=== PATIENT | male | born 2000 | race Caucasian/White ===

== ENCOUNTER → 2019-12-12 | Outpatient (CLI) | payer BC ==
--- NOTE | 2019-12-12 15:31 | Diagnostic Imaging Report ---
PROCEDURE: US Scrotum. TECHNIQUE: Multiple real-time grayscale images were obtained over the scrotum in various projections bilaterally. INDICATION: Testicular pain that radiates to the right inguinal canal. Right testicle measures 4.2 x 2.7 x 1.9 cm, the left testicle measures 4.1 x 2.4 x 1.8 cm. Both testes show homogeneous echotexture. No discrete testicular mass is detected. There is blood flow to both testes. Epidermides are unremarkable. No hydrocele or varicocele is seen. There is some heterogeneity noted in the right inguinal canal which does show some movement during Valsalva maneuvers. This may represent a right inguinal hernia. IMPRESSION: 1. Unremarkable scrotal ultrasound. No testicular mass or vascular compromise is identified. 2. Findings suggestive of right inguinal hernia. Dictated by: Dictated on workstation # [id number]
== END ==
LOC: RAD 13:55
PROVIDERS: ATTEND Nurse Practitioner Family
DX: N50.819 Testicular pain, unspecified (principal)
CPT/HCPCS: 76870

== ENCOUNTER 2020-02-23 09:20 | Outpatient (RCR) | payer BC ==
[~2020-02-23] VITALS: Ht 160 cm; Wt 73.6 kg
== END 2020-02-23 14:50 | disposition home or self-care (01) ==
LOC: PREOP 09:20
PROVIDERS: ATTEND Surgery
DX: Z01.818 Encounter for other preprocedural examination (principal); Z11.59 Encounter for screening for other viral diseases; K40.31 Unilateral inguinal hernia, with obstruction, without gangrene, recurrent
CPT/HCPCS: 87635

== ENCOUNTER 2020-02-29 09:00 | Day surgery (SDC) | payer BC ==
[2020-02-29] VITALS (11 sets, daily range): BP systolic 95–137; BP diastolic 63–83
[~2020-02-29] VITALS: Ht 162.6 cm; Wt 73.6 kg
--- NOTE | 2020-02-29 09:07 | Progress Note-Pre Operative ---
Pre-Operative Progress Note H&P Reviewed The H&P was reviewed, patient examined and no changes noted. Date Seen by Provider: February 29, 2020 Time Seen by Provider: 09:05 Date H&P Reviewed: February 29, 2020 Time H&P Reviewed: 09:00 Pre-Operative Diagnosis: Right inguinal hernia SOLE STEWART APRN February 29, 2020 09:07
[2020-02-29] MEDS ORDERED: HYDR-4227 PO (09:09)
--- NOTE | 2020-02-29 09:09 | Discharge Inst-Surgical ---
D/C Lap Instructions-KIDO Reconcile Patient Problems Problems Reviewed?: Yes New, Converted, or Re-Newed RX: RX on Chart Follow Up Appt in 2 weeks Activity as tolerated No driving for 24 hours No driving while on pain medications Incentive Spirometry use every 2 hours while awake Regular Diet Symptoms to Report: Fever over 101 degree F, Nausea/Vomiting Infection Signs and Symptoms to report: Increased redness, Foul odor of wound, Increased drainage Bathing instructions: May shower Operative Area Clean/Dry; Keep incision clean/dry If any problems/questions: Contact your physician or go to Emergency Room SOLE STEWART APRN February 29, 2020 09:09
--- OUTSIDE RECORDS SUMMARY | 2020-02-29 09:13 | XMS REPORT | Continuity of Care Document ---
Demographics Preferred Language Unknown Marital Status Unknown Roman Catholic Affiliation Unknown Race Unknown Ethnic Group Unknown Author Organization Unknown Address Unknown Phone Unavailable Allergies Active Description Code Type Severity Reaction Onset Reported/Identified Relationship to Patient Clinical Status Yes NKDA NKDA N/A N/A Yes No Known Drug Allergies [id number] Drug Allergy Unknown N/A 02/22/2020 Medications Medication Packaging Start Date St op Date Route Dosage Sig doxycycline monohydrate caps ule 12/08/2018 Take 1 capsule by mouth twice a day Problems Date Dx Coded Attending Type Code Diagnosis Diagnosed By 09/02/1449 SRINIVAS FUENTES MD, Ot K40.31 UNILATERAL INGUINAL HERNIA, W OBST, W/O 09/02/1449 SRINIVAS FUENTES MD Ot Z01.81 8 ENCOUNTER FOR OTHER PREPROCEDURAL EXAMIN 09/02/1449 SRINIVAS FUENTES MD, Ot Z11.59 ENCOUNTER FOR SCREENING FOR OTHER VIRAL 12/09/2018 MD Varsha, Kristopher ICD10 R30.0 Dysuria Kristopher, 12/05/2019 W N50.811 Te sticular pain, right Blaire Puri 12/05/2019 W 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.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 Blaire Puri 12/08/2019 W N50.811 Te sticular pain, right Blaire Puri 12/08/2019 W R46.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 Blaire Puri 12/15/2019 BLAIRE PURI WINDOW TRIMMER Ot N50.819 TESTICULAR PAIN, UNSPECIFIED 12/25/2019 BLAIRE PURI WINDOW TRIMMER Ot N50.811 RIGHT TESTICULAR PAIN 01/08/2020 BLAIRE PURI WINDOW TRIMMER Ot N50.811 RIGHT TESTICULAR PAIN Procedures Code Description [place] [address] UA D ipstick only Kristopher, 12/08/2018 25407 NEW LEVEL 3 Kristopher, 12/08/2018 Results Test Result Range Urine Culture, Routine - 12/08/18 11:57 Urine Culture, Routine Note Coronavirus SARS-CoV-2 SO 2019 - 0 13:20 Coronavirus Ab [Units/volume] in Serum Negative Negative Encounters ACCT No. Visit Date/Time Discharge Status Pt. Type Provider Facility Loc./Unit Complaint [id number] 12/10/2018 19:06:00 Document Registration [id number] 04/03/2019 16:00:00 04/03/2019 23:59:5 9 CLS Outpatient ITZEL RANDALL [facility] [id number] 12/08/2018 00:00:00 12/08/2018 23:59: 59 CLS Outpatient MD Maddox John [id number] 02/23/2020 09:20:00 14:50:00 DIS Outpatient SRINIVAS FUENTES MD [facility] PREOP RIGHT INGUINAL HERNIA [id number] 12/12/2019 13:55:00 23:59:59 CLS Outpatient BLAIRE PURI [facility] RAD TESTICULAR PAIN [id number] 02/29/2020 10:00:00 P EN Preadmit SRINIVAS FUENTES MD [facility] RIGHT INGUINAL HERNIA [id number] 11/20/2019 12:41:49 11/20/2019 23:59:5 9 CLS Outpatient
[2020-02-29] MEDS ORDERED: HYDROcodone/APAP 5 MG/325 MG (LORTAB) TAB PO ONE (09:15)
[2020-02-29] MEDS ORDERED: morphine INJ 10 MG/ML 1ML (SYR OR VIAL) IVP PRN (09:15)
[2020-02-29] MEDS ORDERED: ONDANSETRON 4 MG/2 ML (SDV) Z0FRAN IVP PRN (09:15)
[2020-02-29] MEDS ORDERED: ACETAMINOPHEN 325 MG TABLET PO PRN (09:15)
[2020-02-29] MEDS ORDERED: MIDAZOLAM 2 MG/2 ML (VERSED) VIAL ONE ×2 (09:26→10:11)
[2020-02-29] MEDS ORDERED: BUP/EPI 0.5% 1:200,000 (SENSORCAINE) 30 ML VIAL ONE (09:26)
[2020-02-29] MEDS ORDERED: MULT-974 PO (09:28)
[2020-02-29] MEDS: LACTATED RINGERS 1,000 ML IV PRN ×3 (09:29→12:01)
[2020-02-29] MEDS ORDERED: MIDAZOLAM 2 MG/2 ML (VERSED) VIAL IVP ONE (09:30)
[2020-02-29] MEDS ORDERED: ceFAZolin 2 GM IV Premixed 50 ML IV ONE (09:30)
[2020-02-29] MEDS ORDERED: ONDANSETRON 4 MG/2 ML (SDV) Z0FRAN IVP ONE (09:30)
[2020-02-29 09:36] LABS: BASOPHILS % (AUTO) 0 % (0-10); EOSINOPHILS # (AUTO) 0.2 10^3/uL (0.0-0.3); EOSINOPHILS % (AUTO) 2 % (0-10); HEMATOCRIT 45 % (40-54); HEMOGLOBIN 15.9 G/DL (13.3-17.7); LYMPHOCYTES # (AUTO) 3.7 X 10^3 (1.0-4.0); LYMPHOCYTES % (AUTO) 47 % (12-44); MEAN CORPUSCULAR HEMOGLOBIN 31 PG (25-34); MEAN CORPUSCULAR HGB CONC 36 G/DL (32-36); MEAN CORPUSCULAR VOLUME 87 FL (80-99); MEAN PLATELET VOLUME 12.2 FL (7.4-10.4); MONOCYTES # (AUTO) 0.8 X 10^3 (0.0-1.0); MONOCYTES % (AUTO) 10 % (0-12); NEUTROPHILS # (AUTO) 3.1 X 10^3 (1.8-7.8); NEUTROPHILS % (AUTO) 40 % (42-75); PLATELET COUNT 170 10^3/uL (130-400); RED CELL DISTRIBUTION WIDTH 13.7 % (10.0-14.5); WHITE BLOOD COUNT 7.7 10^3/uL (4.3-11.0)
[2020-02-29] MEDS ORDERED: ONDANSETRON 4 MG/2 ML (SDV) Z0FRAN IV ONE (09:45)
[2020-02-29] MEDS ORDERED: MIDAZOLAM 2 MG/2 ML (VERSED) VIAL IV ONE (09:45)
[2020-02-29] MEDS ORDERED: fentaNYL INJECTION 100 MCG/2 ML AMP ONE (10:11)
[2020-02-29] MEDS ORDERED: SEVOFLURANE (ULTANE) 15 ML INHAL SOLN ONE ×4 (11:27→11:38)
[2020-02-29] MEDS ORDERED: ONDANSETRON 4 MG/2 ML (SDV) Z0FRAN ONE (11:27)
[2020-02-29] MEDS ORDERED: proPOfol 200 MG/20 ML (DIPRIVAN) VIAL IV ONE (11:27)
[2020-02-29] MEDS ORDERED: LIDOCAINE PF 2% 5 ML (XYLOCAINE) VIAL ONE (11:27)
[2020-02-29] MEDS ORDERED: ROCURONIUM 10 MG/ML 5 ML SYRINGE IV ONE (11:27)
[2020-02-29] MEDS ORDERED: DEXAMETHASONE 10 MG/ML (DECADRON) 1 ML VIAL ONE (11:27)
[2020-02-29] MEDS ORDERED: SUGAMMADEX 500 MG/5 ML VIAL (BRIDION) IV ONE (11:36)
[2020-02-29] MEDS ORDERED: KETOROLAC 30 MG/ML VIAL ONE (11:40)
[2020-02-29] MEDS ORDERED: HYDROmorphone 2 MG/ML VIAL (DILAUDID) ONE (11:54)
[2020-02-29] MEDS ORDERED: PROMETHAZINE INJ 25 MG/ML (PHENERGAN) AMP IVP ONE (12:00)
[2020-02-29] MEDS ORDERED: HYDROmorphone 2 MG/ML VIAL (DILAUDID) IV ONE (12:00)
[2020-02-29] MEDS: ONDANSETRON 4 MG/2 ML (SDV) Z0FRAN IVP PRN ×3 (12:01→12:34)
--- NOTE | 2020-02-29 12:14 | Progress Note-Post Operative ---
Post-Operative Progess Note Surgeon (s)/Snailer (s) Surgeon SRINIVAS FUENTES MD Snailer: yumi thayer METAL HANGER Pre-Operative Diagnosis Right inguinal hernia Post-Operative Diagnosis small right indirect inguinal hernia Procedure & Operative Findings Date of Procedure 02/29/20 Procedure Performed/Findings laparoscopic right inguinal hernia repair with mesh. Anesthesia Type get Estimated Blood Loss Estimated blood loss (mL): minimal Specimens/Packing Specimens Removed none SRINIVAS FUENTES MD February 29, 2020 12:14
[2020-02-29] MEDS ORDERED: HYDROcodone/APAP 5 MG/325 MG (LORTAB) TAB ONE (13:41)
--- NOTE | 2020-02-29 14:50 | Anesthesia-General Post-Op ---
General Patient Condition Mental Status/LOC: Same as Preop Cardiovascular: Satisfactory Nausea/Vomiting: Absent Respiratory: Satisfactory Pain: Controlled Complications: Absent Post Op Complications Complications None Follow Up Care/Instructions Patient Instructions None needed. Anesthesia/Patient Condition Patient Condition Patient is doing well, no complaints, stable vital signs, no apparent adverse anesthesia problems. No complications reported per nursing. D/C home per [facility] Criteria: Yes HILDA ACOSTA CRNA February 29, 2020 14:50
--- NOTE | 2020-02-29 20:32 | OPERATIVE REPORT ---
DATE OF SERVICE: 02/29/2020 ATTENDING PRIMARY CARE PHYSICIAN: Verito Magaña MD PREOPERATIVE DIAGNOSIS: Symptomatic right inguinal hernia. POSTOPERATIVE DIAGNOSIS: Symptomatic right indirect inguinal hernia. PROCEDURE PERFORMED: Laparoscopic right inguinal hernia repair with mesh. SURGEON: Srinivas Fuentes MD. ANESTHESIA: General endotracheal. ESTIMATED BLOOD LOSS: Minimal. FINDINGS: Same as postoperative diagnosis. DISPOSITION: The patient tolerated the procedure well. INDICATIONS: The patient is a 19-year-old male, who reports noticing pain in the right inguinal region for the past two months, which was initially mild; however, has worsened over the time. He was seen by his primary care physician and underwent a scrotal ultrasound, which did not show any testicular lesions; however, a right inguinal hernia was identified. He is otherwise eating well and having normal bowel movements. DESCRIPTION OF PROCEDURE: The patient was brought to the operating room and laid supine on the table. After adequate IV pain and sedative medications and general endotracheal intubation, the abdomen was prepped and draped in a standard surgical fashion. A 0.5% Marcaine with epinephrine was then used to anesthetize the overlying skin and after general endotracheal intubation, the abdomen and perineum were prepped and draped in standard surgical fashion. A 0.5% Marcaine with epinephrine was then used to anesthetize the overlying skin in the infraumbilical rim and a small skin incision was made using a 15 blade. The abdominal wall was then retracted anteriorly with a sharp towel clamp and a Veress needle inserted with low opening pressure of 0 mmHg. The abdomen was then insufflated to 15 mmHg pressure. The Veress needle removed and a 5 mm XL trocar placed followed by a 5 mm 45-degree angle laparoscope visualizing the peritoneal cavity. The Veress needle removed and a 10 mm XL trocar placed followed by a 10 mm 45-degree angle laparoscope visualizing the peritoneal cavity. A 4-quadrant abdominal exploration was performed. There was a small right indirect inguinal hernia identified. This was reducible. There was no left inguinal hernia component. What was visualized of the omentum, small bowel and colon appeared normal. Under direct visualization, we then proceeded to place bilateral 5 mm ports after the skin and peritoneal lining were anesthetized using 0.5% Marcaine with epinephrine and a transverse skin incision was made using a 15 blade. The patient was then placed in a Trendelenburg position. A window was then created along the peritoneal lining using a Sonicision. We then proceeded laterally towards the conjoined tendon and inguinal ligament using the Sonicision. We then proceeded medially until the Danny's ligament was identified. We then proceeded with our inferior dissection encompassing the hernia sac with it. The cord and its surrounding contents were identified and spared throughout the process. Good hemostasis was observed. A 3DMax polypropylene mesh was then placed through the 10 mm port site and then tacked to the Danny's ligament medially and to the conjoined tendon laterally using absorbable tacks. The peritoneal lining was then placed over the mesh and a few absorbable tacks were placed to hold this in place with visualization of good hemostasis. The 10 mm port site fascia and peritoneum were then closed under direct visualization using a Kyrie-Subhash device and 0 Vicryl suture. The abdomen was desufflated and the remaining were ports removed. All skin incisions were closed using 4-0 Monocryl running subcuticular sutures. Wounds were then cleaned and covered with Dermabond. The patient tolerated the procedure well. We will start IV normal pain medication as well as a clear liquid diet. Once he is tolerating clears, has good pain control with oral pain medications and ambulating well, we will discharge him home. He will be instructed to do no heavy lifting or exertion for the next two weeks. Job ID: [id number] DocumentID: [id number] Dictated Date: 02/29/2020 12:21:36 Fitness Manager Date: 02/29/2020 20:32:15 Dictated By: SRINIVAS FUENTES MD
== END 2020-02-29 14:05 | disposition home or self-care (01) ==
LOC: SDC 09:00
PROVIDERS: ATTEND Surgery
DX: K40.90 Unilateral inguinal hernia, without obstruction or gangrene, not specified as recurrent (principal); Z82.49 Family history of ischemic heart disease and other diseases of the circulatory system
CPT/HCPCS: 36415; 85025; 87081

== ENCOUNTER → 2021-01-16 | Outpatient (CLI) | payer BC ==
[~2021-01-16] MED LIST: HYDR-4227 PO; MULT-974 PO
--- NOTE | 2021-01-16 10:25 | Diagnostic Imaging Report ---
PROCEDURE: US Scrotum. TECHNIQUE: Multiple real-time grayscale images were obtained over the scrotum in various projections bilaterally. INDICATION: Right inguinal pain radiating into the scrotum. Patient had right inguinal hernia repair in February 2020. Right testicle measures 4.3 x 2.2 x 3.0 cm and the left testicle measures 4.2 x 1.9 x 2.4 cm. Both testes show homogeneous echotexture. No discrete testicular mass is seen. There is blood flow to both testes. Epididymides are unremarkable bilaterally. There is a small right hydrocele. No varicocele is seen. Imaging of the right inguinal canal demonstrates a lymph node approximately 1.9 x 0.5 x 0.9 cm. No other abnormality is seen. IMPRESSION: Unremarkable scrotal ultrasound. Dictated by: Dictated on workstation # [id number]
== END ==
LOC: RAD 08:49
PROVIDERS: ATTEND Nurse Practitioner Family
DX: N50.811 Right testicular pain (principal)
CPT/HCPCS: 76870

== ENCOUNTER → 2022-01-29 | Outpatient (CLI) | payer BC ==
--- NOTE | 2022-01-29 10:05 | Diagnostic Imaging Report ---
PROCEDURE: US Scrotum. TECHNIQUE: Multiple real-time grayscale images were obtained over the scrotum in various projections bilaterally. INDICATION: Right scrotal pain and swelling, history of hernia repair. FINDINGS: Sonographic surveillance of the groin with and without Valsalva showed no identifiable hernia. The testicular parenchyma appeared normal bilaterally. There is no testicular mass. No findings of orchitis or torsion. The epididymides are unremarkable. There is a small simple right hydrocele. No left-sided hydrocele. There is no varicocele. No findings of pyocele. There were no findings of epididymitis. 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 No acute appearing abnormality. IMPRESSION: Right hydrocele showed no complexity. No identifiable hernia. Normal appearance of the testicles. No acute or suspicious epididymal pathology. Dictated by: Dictated on workstation # [id number]
== END ==
LOC: RAD 09:00
PROVIDERS: ATTEND Nurse Practitioner Family
DX: N43.3 Hydrocele, unspecified (principal); Z98.890 Other specified postprocedural states
CPT/HCPCS: 76870

== ENCOUNTER 2023-04-15 23:56 | Emergency (ER) | payer BC, OTHER ==
[~2023-04-15] VITALS: Ht 160 cm; Wt 72.1 kg
[2023-04-16 01:00] LABS: BASOPHILS % (AUTO) 0 % (0-10); EOSINOPHILS % (AUTO) 0 % (0-10); HEMATOCRIT 45 % (40-54); LYMPHOCYTES # (AUTO) 0.8 10^3/uL (1.0-4.0); LYMPHOCYTES % (AUTO) 6 % (12-44); MEAN CORPUSCULAR HEMOGLOBIN 31 pg (25-34); MEAN CORPUSCULAR HGB CONC 35 g/dL (32-36); MEAN CORPUSCULAR VOLUME 87 fL (80-99); MEAN PLATELET VOLUME 11.6 fL (9.0-12.2); MONOCYTES # (AUTO) 1.3 10^3/uL (0.0-1.0); MONOCYTES % (AUTO) 9 % (0-12); NEUTROPHILS # (AUTO) 12.4 10^3/uL (1.8-7.8); NEUTROPHILS % (AUTO) 85 % (42-75); PLATELET COUNT 156 10^3/uL (130-400); WHITE BLOOD COUNT 14.6 10^3/uL (4.3-11.0)
--- NOTE | 2023-04-16 01:04 | ED EENT ---
History of Present Illness General Chief Complaint: Foreign Body Stated Complaint: F O IN THROAT,VOMIITNG,ANXIETY Nursing Triage Note: Patient to ER via POV ambulatory to room 07 w c/o foreign object in throat. Patient states he has a habit of chewing on his nails. Wednesday he felt a nail had slipped down his throat. Patient woke up with sore throat on Wednesday. feels "pokey" and "makes my eyes water." "I feel like i'm not breathing as well." Patient reports can't sleep, cant eat, and has vomitted 24-25x today. Patient states the object moved to behind the tonsils today. He went to [facility] today. They prescribed him abx and anxiety medication. Patient appears anxious. Source: patient History of Present Illness Date Seen by Provider: Apr 16, 2023 Time Seen by Provider: 00:30 Initial Comments PT ARRIVES VIA POV FROM HOME, DROVE SELF HERE PT STATES "I'M AT MY WITS END" PT STATES IT FEELS LIKE THERE IS SOMETHING STUCK IN HIS THROAT AND IT IS ITCHY AND IT FEELS LIKE SOMETHING IS POKING HIM AT TIMES--THIS HAS BEEN GOING ON FOR SEVERAL DAYS "ALMOST A WEEK" HE STATES "I HAVE NO IDEA WHAT IT MIGHT BE" STATES "I THREW UP 24 TIMES" BECAUSE IT IS MAKING HIM ANXIOUS AND HE KEEPS TRYING TO MAKE HIMSELF THROW UP TO GET WHATEVER IS IN HIS THROAT OUT HE STATES "IT'S SHIFTED ALL TODAY--IT FEELS LIKE IT'S ABOVE MY MOUTH AND NOW IT'S IN MY SINUSES AND IT FEELS LIKE IT'S ABOVE MY TONSILS AND THEN IT SHIFTED TO THE CENTER ON THE INSIDE, AND THEN IT SHIFTED TO BEHIND MY TONSILS" STATES HE "CAN'T SLEEP" DUE TO THIS SENSATION PT IS ABLE TO SWALLOW AND BREATHE WITHOUT DIFFICULTY NO PROBLEMS EATING HE ARRIVES WITH 2 BOTTLES OF WATER FROM THE VENDING MACHINE IN THE LOBBY AND IS DRINKING THEM HE IS WALKING INTO ER ROOM. HE IS NOT COUGHING OR CHOKING OR GAGGING OR SPITTING UP LIQUIDS OR SALIVA. HE IS ABLE TO TALK WITHOUT DIFFICULTY. NO FEVER OR URI SYMPTOMS NO SHORTNESS OF BREATH HE HAS AN APPOINTMENT WITH DR. BEAULIEU TODAY / WEDNESDAY FOR THIS PROBLEM HE WENT TO [facility] TODAY FOR THIS PROBLEM, STREP TEST WAS DONE AND WAS NEGATIVE, PER PT. HE WAS PRESCRIBED AMOXIL AND HYDROXYZINE. PT IS EXTREMELY ANXIOUS AND STATES THAT HE HAS BEEN ON MENTAL HEALTH MEDICATIONS IN THE PAST, BUT HAS NOT BEEN ON THEM RECENTLY OR BEEN SEEING ANYONE FOR MENTAL HEALTH RECENTLY. Allergies and Home Medications Allergies Coded Allergies: No Known Drug Allergies (Unverified , 02/22/20) Patient Home Medication List Home Medication List Reviewed: Yes Hydrocodone/Acetaminophen ([place] 7.5-325 Tablet) 1 Each Tablet, 1-2 TAB PO Q4H Prescribed by: SOLE STEWART on 02/29/20 0909 Multivitamin (Multi-Vitamin Daily) 1 Each Tablet, 1 EACH PO DAILY, (Reported) Entered as Reported by: ANN FENTON on 02/29/20 0928 Review of Systems Review of Systems Constitutional: no symptoms reported Eyes: No Symptoms Reported Ears: No Symptoms Reported Nose: no symptoms reported Mouth: see HPI Throat: see HPI Respiratory: no symptoms reported Cardiovascular: no symptoms reported Gastrointestinal: see HPI Musculoskeletal: no symptoms reported Skin: no symptoms reported Neurological: See HPI, Anxiety Hematologic/Lymphatic: No Symptoms Reported Immunological/Allergic: no symptoms reported Past Dyamote-Rundpq-Vtmbpr Hx Patient Social History Tobacco Use?: No Substance use?: Yes Substance type: Marijuana Substance frequency: Daily Alcohol Use?: Yes Alcohol Frequency: Rarely Seasonal Allergies Seasonal Allergies: No Past Medical History Surgeries: Yes (WISDOM TEETH) Respiratory: No Currently Using CPAP: No Currently Using BIPAP: No Cardiac: No Neurological: No Genitourinary: No Gastrointestinal: Yes (ING HERNIA) Irritable Bowel Musculoskeletal: No Endocrine: No HEENT: No Cancer: No Psychosocial: Yes Anxiety Integumentary: No Blood Disorders: No Physical Exam Vital Signs Vital Signs - First Documented 04/16/23 00:05 Temp 37.2 Pulse 130 Resp 24 B/P (MAP) 136/120 (125) Pulse Ox 98 O2 Delivery Room Air Height, Weight, BMI Height: '" Weight: lbs. oz. kg; 28.00 BMI Method: General Appearance: WD/WN, no apparent distress, other (PT IS EXTREMELY ANXIOUS AND TALKS NON-STOP AT GREAT LENGTH WITHOUT DIFFICULTY, AND SPEECH IS SOMEWHAT ERRATIC) Eyes: bilateral eye normal inspection, bilateral eye PERRL, bilateral eye EOMI Ears: bilateral ear auricle normal, bilateral ear canal normal, bilateral ear TM normal Nose: normal inspection; No discharge, No sinus tenderness Mouth/Throat: normal mouth inspection, pharynx normal; No excessive drooling, No foreign body, No pharynx swelling, No pharynx tenderness, No tongue swollen, No tonsillar exudate, No tonsillar swelling, No trismus, No uvula swelling, No voice changes; other (VOICE IS NORMAL. NO HOARSENESS) Neck: non-tender, full range of motion, supple, normal inspection; No lymphadenopathy (R), No lymphadenopathy (L) Cardiovascular: regular rate, rhythm, no murmur Respiratory: normal breath sounds, no respiratory distress, no accessory muscle use; No stridor, No wheezing Neurologic/Psychiatric: license and permit specialist II-XII nml as tested, no motor/sensory deficits, al ert, oriented x 3, other ( ABOVE) Skin: normal color, warm/dry Progress/Results/Core Measures Results/Orders Lab Results Laboratory Tests Test 04/16/23 00:47 04/16/23 00:49 04/16/23 00:55 Range/Units Urine Opiates Screen NEGATIVE NEGATIVE Urine Oxycodone Screen NEGATIVE NEGATIVE Urine Methadone Screen NEGATIVE NEGATIVE Urine Propoxyphene Screen NEGATIVE NEGATIVE Urine Barbiturates Screen NEGATIVE NEGATIVE Ur Tricyclic Antidepressants Screen NEGATIVE NEGATIVE Urine Phencyclidine Screen NEGATIVE NEGATIVE Urine Amphetamines Screen NEGATIVE NEGATIVE Urine Methamphetamines Screen NEGATIVE NEGATIVE Urine Benzodiazepines Screen NEGATIVE NEGATIVE Urine Cocaine Screen NEGATIVE NEGATIVE Urine Cannabinoids Screen POSITIVE H NEGATIVE White Blood Count 14.6 H 4.3-11.0 10^3/uL Red Blood Count 5.23 4.30-5.52 10^6/uL Hemoglobin 16.0 13.3-17.7 g/dL Hematocrit 45 40-54 % Mean Corpuscular Volume 87 80-99 fL Mean Corpuscular Hemoglobin 31 25-34 pg Mean Corpuscular Hemoglobin Concent 35 32-36 g/dL Red Cell Distribution Width 12.7 10.0-14.5 % Platelet Count 156 130-400 10^3/uL Mean Platelet Volume 11.6 9.0-12.2 fL Immature Granulocyte % (Auto) 0 % Neutrophils (%) (Auto) 85 H 42-75 % Lymphocytes (%) (Auto) 6 L 12-44 % Monocytes (%) (Auto) 9 0-12 % Eosinophils (%) (Auto) 0 0-10 % Basophils (%) (Auto) 0 0-10 % Neutrophils # (Auto) 12.4 H 1.8-7.8 10^3/uL Lymphocytes # (Auto) 0.8 L 1.0-4.0 10^3/uL Monocytes # (Auto) 1.3 H 0.0-1.0 10^3/uL Eosinophils # (Auto) 0.0 0.0-0.3 10^3/uL Basophils # (Auto) 0.0 0.0-0.1 10^3/uL Immature Granulocyte # (Auto) 0.1 0.0-0.1 10^3/uL Neutrophils % (Manual) 74 % Lymphocytes % (Manual) 4 % Monocytes % (Manual) 6 % Band Neutrophils 16 % Sodium Level 140 135-145 MMOL/L Potassium Level 3.2 L 3.6-5.0 MMOL/L Chloride Level 102 98-107 MMOL/L Carbon Dioxide Level 23 21-32 MMOL/L Anion Gap 15 H 5-14 MMOL/L Blood Urea Nitrogen 11 7-18 MG/DL Creatinine 0.97 0.60-1.30 MG/DL Estimat Glomerular Filtration Rate 112 BUN/Creatinine Ratio 11 Glucose Level 135 H 70-105 MG/DL Calcium Level 9.8 8.5-10.1 MG/DL Corrected Calcium 8.5-10.1 MG/DL Total Bilirubin 0.6 0.1-1.0 MG/DL Aspartate Amino Transf (AST/SGOT) 24 5-34 U/L Alanine Aminotransferase (ALT/SGPT) 21 0-55 U/L Alkaline Phosphatase 92 40-136 U/L Total Protein 8.7 H 6.4-8.2 GM/DL Albumin 4.7 H 3.2-4.5 GM/DL TSH Kay Testing 2.07 0.35-4.94 UIU/ML Serum Alcohol < 10 <10 MG/DL Monoscreen NEGATIVE NEGATIVE Group A Streptococcus Screen NEGATIVE NEGATIVE My Orders Orders - FATUMA PEDERSON DO Ed Iv/Invasive Line Start (04/16/23 00:42) Monitor-Rhythm Ecg Trace Only (04/16/23 00:42) Ct Neck (Soft Tissue) W (04/16/23 00:42) Alcohol (04/16/23 00:42) Cbc With Automated Diff (04/16/23 00:42) Comprehensive Metabolic Panel (04/16/23 00:42) Monotest (04/16/23 00:42) Thyroid Analyzer (04/16/23 00:42) Drug Screen Stat (Urine) (04/16/23 00:42) Rapid Strep A Screen (04/16/23 00:42) Manual Differential (04/16/23 00:49) Throat Culture Strep A Confirm (04/16/23 00:55) Iohexol Injection (Omnipaque 350 Mg/Ml 1 (04/16/23 01:30) Received Contrast (Hold Metformin- Contr (04/16/23 01:30) Sodium Chloride Flush (Catheter Flush Sy (04/16/23 01:30) Ns (Ivpb) (Sodium Chloride 0.9% Ivpb Bag (04/16/23 01:30) Lidocaine 2% Viscous 15 Ml (Xylocaine Vi (04/16/23 03:00) Medications Given in ED Current Medications Medications Dose Ordered Sig/Noe Route Start Time Stop Time Status Last Admin Dose Admin Iohexol 100 ml ONCE ONCE IV 04/16/23 01:30 04/16/23 01:31 DC 04/16/23 01:35 75 ML Lidocaine HCl 5 ml ONCE ONCE PO 04/16/23 03:00 04/16/23 03:01 DC 04/16/23 02:59 5 ML Sodium Chloride 10 ml NEEDED PRN IV 04/16/23 01:30 04/16/23 03:01 DC 04/16/23 01:35 10 ML Sodium Chloride 100 ml ONCE ONCE IV 04/16/23 01:30 04/16/23 01:31 DC 04/16/23 01:35 80 ML Vital Signs/I&O 04/16/23 04/16/23 00:05 02:59 Temp 37.2 37.0 Pulse 130 98 Resp 24 16 B/P (MAP) 136/120 (125) 124/89 Pulse Ox 98 99 O2 Delivery Room Air Room Air Blood Pressure Mean: 125 Progress Progress Note : Progress Note LABS UNREMARKABLE GIVEN VISCOUS LIDOCAINE, WITHOUT IMPROVEMENT IN SYMPTOMS--STATES HE STILL FEELS LIKE THERE IS SOMETHING BEHIND HIS TONSILS PT DROVE HIMSELF HERE, THEREFORE CANNOT GIVE HIM ANY MEDICATIONS FOR ANXIETY AT THIS TIME. PT WAS GIVEN RX FOR HYDROXYZINE TODAY AT [facility], ADVISED HIM TO TAKE A TOTAL OF 20 MG WHEN HE GETS HOME ( RX WAS FOR 10 MG HYDROXYZINE) DISCUSSED TEST RESULTS, ANTICIPATED COURSE, SYMPTOMATIC TREATMENT, NEED FOR FOLLOW UP WITH DR. BEAULIEU TODAY SCHEDULED, AND DISCUSSED THAT HE MAY POSSIBLY NEED TO BE REFERRED TO ENT. HE STATES HE CALLED DR. WALELR'S OFFICE TODAY BUT THEY WOULD NOT SEE HIM WITHOUT A REFERRAL. DISCUSSED RETURN PRECAUTIONS DISCUSSED THAT CT ONLY SHOWS RADIOPAQUE OBJECTS, AND IT IS POSSIBLE THAT HE MAY HAVE SOMETHING THAT IS NOT RADIOPAQUE CAUSING HIS SYMPTOMS, AND THEREFORE MAY NEED TO BE EVALUATED BY ENT. Diagnostic Imaging Comments CT NECK SOFT TISSUE--PER [facility] VIA FAX AT 0242 -NO ACUTE FINDINGS -NO RADIOPAQUE FOREIGN BODY IDENTIFIED. Reviewed: Reviewed by Me Departure Impression Primary Impression: FOREIGN BODY SENSATION IN THROAT Additional Impression: Anxiety Disposition: 01 HOME, SELF-CARE Condition: Stable Departure-Patient Inst. Decision time for Depature: 02:50 Referrals: JODY BEAULIEU MD (PCP/Family) Primary Care Physician Patient Instructions: Anxiety, Adult ED Add. Discharge Instructions: USE OVER THE COUNTER CEPACOL LOZENGES FOR THROAT DISCOMFORT YOU MAY TAKE HYDROXZYINE PRESCRIBED KEEP YOUR APPOINTMENT WITH DR. BEAULIEU TODAY. All discharge instructions reviewed with patient and/or family. Voiced understanding. FATUMA PEDERSON DO Apr 16, 2023 01:04
[2023-04-16 01:10] LABS: AMPHETAMINE SCREEN, URINE NEGATIVE (NEGATIVE); BARBITURATE SCREEN URINE NEGATIVE (NEGATIVE); BENZODIAZEPINES SCREEN URINE NEGATIVE (NEGATIVE); CANNABINOID SCREEN, URINE POSITIVE (NEGATIVE); COCAINE SCREEN URINE NEGATIVE (NEGATIVE); METHADONE STAT NEGATIVE (NEGATIVE); OPIATE SCREEN URINE NEGATIVE (NEGATIVE); OXYCODONE STAT NEGATIVE (NEGATIVE); PROPOXYPHENE STAT NEGATIVE (NEGATIVE); TRICYCLIC ANTIDEPRESSANTS SCRE NEGATIVE (NEGATIVE)
[2023-04-16 01:12] LABS: ALBUMIN 4.7 GM/DL (3.2-4.5); CHLORIDE 102 MMOL/L (98-107); POTASSIUM 3.2 MMOL/L (3.6-5.0); SODIUM 140 MMOL/L (135-145)
[2023-04-16 01:13] LABS: CALCIUM 9.8 MG/DL (8.5-10.1)
[2023-04-16 01:14] LABS: BAND NEUTROPHILS 16 %; GLUCOSE 135 MG/DL (70-105); LYMPHOCYTES % (MANUAL) 4 %; MONOCYTES % (MANUAL) 6 %; NEUTROPHILS % (MANUAL) 74 %; TOTAL PROTEIN 8.7 GM/DL (6.4-8.2)
[2023-04-16 01:15] LABS: CARBON DIOXIDE 23 MMOL/L (21-32)
[2023-04-16 01:16] LABS: BILIRUBIN,TOTAL 0.6 MG/DL (0.1-1.0)
[2023-04-16 01:17] LABS: ALKALINE PHOSPHATASE 92 U/L (40-136)
[2023-04-16 01:18] LABS: CREATININE SERUM 0.97 MG/DL (0.60-1.30); GFR ESTIMATED 112
[2023-04-16 01:19] LABS: BUN/CREATININE RATIO 11
[2023-04-16 01:21] LABS: ALANINE AMINOTRANSFERASE 21 U/L (0-55)
[2023-04-16] MEDS ORDERED: CATHETER FLUSH 10 ML SYR IV PRN (01:30)
[2023-04-16] MEDS ORDERED: NS 100 ML (IVPB) BAG IV ONE (01:30)
[2023-04-16] MEDS ORDERED: HOLD METFORMIN - RECEIVED CONTRAST 20 ML VIAL IV SCH (01:30)
[2023-04-16] MEDS ORDERED: IOHEXOL 350 MG/ML 100 ML (OMNIPAQUE 350) VIAL IV ONE (01:30)
[2023-04-16 01:40] LABS: TSH (THYROID ANALYZER) 2.07 UIU/ML (0.35-4.94)
[2023-04-16 02:59] VITALS: BP 124/89
[2023-04-16] MEDS ORDERED: LIDOCAINE 2% VISCOUS 15 ML UDC PO ONE (03:00)
--- NOTE | 2023-04-16 07:26 | Diagnostic Imaging Report ---
PROCEDURE: CT neck soft tissue with contrast. TECHNIQUE: Multiple contiguous axial images were obtained through the neck after the administration of contrast. Auto Exposure Controls were utilized during the CT exam to meet ALARA standards for radiation dose reduction. INDICATION: 23-year-old male, woke up with sore throat, not breathing well, thinks may be ingested fingernail. CORRELATION STUDY: None FINDINGS: Nasopharynx, oropharynx, hypopharynx appearing unremarkable. Vallecula and epiglottis appearing unremarkable. Vocal cords are closed. Subglottic airway unremarkable. There is no radiographic evidence for foreign body in the area imaged. The visualized portion of the cervical esophagus and proximal esophagus are unremarkable. Parapharyngeal fat planes are preserved. Parotid, submandibular and thyroid glands unremarkable. A few shotty but non-pathologically enlarged bilateral cervical lymph nodes. There is mild mucosal thickening throughout the ethmoid air cells as well as maxillary sinuses, probable small cysts and/or polyps. The visualized lung apices are unremarkable. Osseous structures demonstrate no acute findings. IMPRESSION: 1. Negative for acute abnormality. No radiographic evidence of foreign body identified. Initial report was provided by [facility]. Dictated by: Dictated on workstation # [id number]
== END 2023-04-16 03:01 | disposition home or self-care (01) ==
LOC: EDUNIT# 23:56 → ER 23:59
DX: R09.89 Other specified symptoms and signs involving the circulatory and respiratory systems (principal); F41.9 Anxiety disorder, unspecified
CPT/HCPCS: 36415; 70491; 80053; 80306; 80320; 84443; 85007; 85027; 86308; 87430

== ENCOUNTER 2023-04-17 13:30 | Emergency (ER) | payer OTHER ==
[~2023-04-17] VITALS: Ht 160 cm; Wt 72.1 kg
[2023-04-17 13:40] VITALS: BP 127/70
[2023-04-17] MEDS ORDERED: LORazepam 0.5 MG (ATIVAN) TABLET PO STA (14:00)
--- NOTE | 2023-04-17 14:03 | ED EENT ---
History of Present Illness General Chief Complaint: Oral/Throat Problems Stated Complaint: THROAT/NASAL PAIN Nursing Triage Note: PATIENT STATES HE WAS SEEN IN ED ON WEDNESDAY AND WAS TOLD BY HIS PRIMARY SHE WOULD PUT IN A CONSULT FOR AN EGD BUT THEY NEVER CALLED HIM BACK. PATIENT APPEARS VERY ANXIOUS OVER WHAT HE DESCRIBES "SOMETHING MOVING IN THE BACK OF HIS THROAT" HE STATES IT WAS BEHIND HIS RIGHT TONSIL AND NOW IS UP ABOVE IN HIS SINUS. VERBALIZES HE IS FOLLOWING HIS CURRENT TREATMENT PLAN OF STEROIDS AND ANTIBIOTIC WELL HYDROXYZINE. Source: patient Exam Limitations: no limitations History of Present Illness Date Seen by Provider: Apr 17, 2023 Time Seen by Provider: 14:01 Initial Comments Patient is a 23-year-old male who presents to the ED for pain in his right sinus, right sided naris. Patient states symptoms started last Wednesday. Started having pain in the back part of his throat. This has switch from left to right side. Difficulty swallowing with gagging and vomiting. Patient states he has been feeling anxious due to this sensation. This pain moved to his nose this past . States he was seen at urgent care placed on prednisone and Augmentin for potential sinus infection. Patient was seen here had a CT scan of his neck which was unremarkable. Reports a continued gagging sensation. States that this sensation is preventing him from doing his normal stuff at home. Extremely anxious on arrival. Fear that there is a foreign body stuck in his sinuses or nose. Denies cough, vomiting, diarrhea, headache, dizziness, visual changes, abdominal pain. Patient has not been taking any other medication. Allergies and Home Medications Allergies Coded Allergies: No Known Drug Allergies (Unverified , 04/17/23) Patient Home Medication List Home Medication List Reviewed: Yes Hydrocodone/Acetaminophen ([place] 7.5-325 Tablet) 1 Each Tablet, 1-2 TAB PO Q4H Prescribed by: SOLE STEWART on 02/29/20 09 Multivitamin (Multi-Vitamin Daily) 1 Each Tablet, 1 EACH PO DAILY, (Reported) Entered as Reported by: ANN FENTON on 02/29/20927 Review of Systems Review of Systems Constitutional: No chills, No diaphoresis Eyes: Denies Blurred Vision, Denies Drainage, Denies Decreased Acuity Ears: Denies Dizziness, Denies Pain Nose: denies clots; congestion Mouth: denies clots, denies loose teeth Throat: denies pain, denies swelling Respiratory: No orthopnea, No short of breath Cardiovascular: No chest pain Gastrointestinal: No abdominal pain, No diarrhea, No nausea, No vomiting Musculoskeletal: No back pain, No joint pain Skin: No change in color, No change in hair/nails Neurological: Denies Anxiety, Denies Depressed All Other Systems Reviewed Negative Unless Noted: Yes Past Babkupp-Bxcryq-Oghgan Hx Patient Social History Tobacco Use?: No Use of E-Cig and/or Vaping dev: No Substance use?: Yes Substance type: Marijuana Alcohol Use?: Yes Alcohol Frequency: Once in a while Immunizations Up To Date Influenza Vaccine Up-to-Date: No; Not Current First/Initial COVID19 Vaccinat: "3 SHOTS" Seasonal Allergies Seasonal Allergies: No Past Medical History Surgery/Hospitalization HX: SURG: ING HERNNIA, WISDOM TEETH REMOVAL DENIES PMHX Surgeries: Yes (WISDOM TEETH) Respiratory: No Currently Using CPAP: No Currently Using BIPAP: No Cardiac: No Neurological: No Genitourinary: No Gastrointestinal: Yes (ING HERNIA) Irritable Bowel Musculoskeletal: No Endocrine: No HEENT: No Cancer: No Psychosocial: Yes Anxiety Integumentary: No Blood Disorders: No Physical Exam Vital Signs Vital Signs - First Documented 04/17/23 13:40 Temp 37.0 Pulse 110 Resp 18 B/P (MAP) 127/70 (89) Pulse Ox 97 O2 Delivery Room Air Height, Weight, BMI Height: '" Weight: lbs. oz. kg; 28.00 BMI Method: General Appearance: WD/WN, no apparent distress Eyes: bilateral eye normal inspection, bilateral eye PERRL, bilateral eye EOMI Ears: bilateral ear auricle normal, bilateral ear canal normal, bilateral ear TM normal Nose: normal inspection Mouth/Throat: normal mouth inspection, pharynx normal Neck: non-tender, full range of motion, supple Cardiovascular: regular rate, rhythm, no edema, no gallop, no JVD Respiratory: chest non-tender, lungs clear, normal breath sounds, no respiratory distress, no accessory muscle use Gastrointestinal: normal bowel sounds, non tender, soft, no organomegaly 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 Differential diagnosis sinus infection, nasal infection, viral syndrome. patient with nasal congestion, sensation in his thorat causing him to gag with nasal pressure. Patient is concern for foreign body in his nose and sinus. Discussed with patient that this is unlikely a foreign body. Patient is highly anxious. Was seen here [address] scan of the neck which did not note any foreign body, abscess, mass. Treated with Augmentin and prednisone for sinus infection. Obtain CT scan of t he sinus. Concern for paraspinal disease on imaging. No foreign body, mass. this should improve with Augmentin. Discussed Sudafed, Mucinex. The gagging and sensation in the throat is likely secondary to his postnasal drip. May consider Zyrtec. Follow-up with ENT outpatient for further evaluation. If any worsening symptoms return back to ED Impression Primary Impression: Sinus pain Disposition: 01 HOME, SELF-CARE Condition: Stable Departure-Patient Inst. Decision time for Depature: 14:03 Referrals: GABRIELLE WALLER MD, HOLLY A MD (PCP/Family) Primary Care Physician Patient Instructions: Sinusitis, Adult (DC) Add. Discharge Instructions: May consider Zyrtec, Benadryl, Sudafed. Continue with antibiotics and steroids. All discharge instructions reviewed with patient and/or family. Voiced understanding. KAMRON MONAE Apr 17, 2023 14:03
--- NOTE | 2023-04-17 14:37 | Diagnostic Imaging Report ---
CLINICAL INDICATION: Patient with right sinus pain. EXAM: Axial CT scan of the maxillofacial structures without IV contrast . Coronal and sagittal reformations were performed. Auto Exposure Controls were utilized during the CT exam to meet ALARA standards for radiation dose reduction. COMPARISON: None. FINDINGS: PARANASAL SINUSES: FRONTAL: Unremarkable. ETHMOID: There is mild to moderate patchy mucosal thickening involving ethmoid sinus. MAXILLARY: There is moderate lobulated mucosal thickening involving the left maxilla sinus. Possible mucus retention cyst involving the periphery of the left maxillary sinus. There is mild mucosal thickening involving right maxillary sinus. SPHENOID: There is minimal mucosal thickening involving the sphenoid sinus. OTHER PARANASAL SINUS FINDINGS: There is paradoxical curvature of both middle nasal turbinates. The ostiomeatal unit regions are obstructed by mucosal thickening. NASAL SEPTUM: Tortuous nasal septum is seen with roughly 4 mm rightward nasal septal deviation anteriorly with a small rightward directed nasal septal bony spur. VISUALIZED TEMPORAL BONE STRUCTURES: Unremarkable. BONY STRUCTURES: Unremarkable. EXTRACRANIAL SOFT TISSUE/ ORBITS: Unremarkable. IMPRESSION: 1: There is paranasal sinus disease, as described above. There are no air-fluid levels seen. 2: There is rightward nasal septal deviation. Dictated by: Dictated on workstation # [id number]
== END 2023-04-17 14:23 | disposition home or self-care (01) ==
LOC: EDUNIT# 13:30 → ER 13:32
DX: J34.89 Other specified disorders of nose and nasal sinuses (principal)
CPT/HCPCS: 70486